=== PATIENT | female | born 1960 | race Caucasian/White ===

== ENCOUNTER 2018-07-19 09:11 | Outpatient (CLI) | payer BC ==
--- NOTE | 2018-07-19 12:35 | MMO ---
BILATERAL SCREENING MAMMOGRAMS: Date: 07/19/18 COMPARISON: 05/03/17 and 01/15/15. HISTORY: Annual screening mammography. This patient's mammogram was interpreted with the assistance of computer-aided detection. FINDINGS: Scattered fibroglandular densities are present. Intramammary lymph node noted superiorly on the left on MLO imaging. There is no dominant mass or architectural distortion. No concerning microcalcifications are noted. IMPRESSION: BIRADS 2: Benign Finding(s) Routine annual mammographic screening is recommended. POS: JW
== END 2018-07-19 09:12 | disposition home or self-care (01) ==
LOC: SCSMAMMO 09:11
PROVIDERS: ATTEND Obstetrics & Gynecology
DX: Z12.31 Encounter for screening mammogram for malignant neoplasm of breast (principal)
CPT/HCPCS: 77067